=== PATIENT | male | born 1945 | race Caucasian/White ===

== ENCOUNTER 2018-11-10 10:15 | Day surgery (SDC) | payer OTHER, BC ==
[2018-11-10] MEDS ORDERED: PROPOFOL 40 ML (11:24)
== END 2018-11-10 15:42 | disposition home or self-care (01) ==
LOC: GIL 10:15
DX: K92.1 Melena (principal); K64.8 Other hemorrhoids; E11.9 Type 2 diabetes mellitus without complications
CPT/HCPCS: 45378; 82962